=== PATIENT | male | born 1945 | race Caucasian/White ===

== ENCOUNTER 2019-11-29 18:03 | Emergency (ER) | payer MEDICARE ==
[~2019-11-29] VITALS: Ht 165.1 cm; Wt 95.4 kg
[2019-11-29] MEDS ORDERED: ALLO10TA PO (18:31)
[2019-11-29] MEDS ORDERED: VENTAER INH (18:31)
[2019-11-29] MEDS ORDERED: FURO40TA2 PO (18:31)
[2019-11-29] MEDS ORDERED: SILD25TA PO (18:31)
[2019-11-29] MEDS ORDERED: META0.52 PO (18:31)
[2019-11-29] MEDS ORDERED: XANA0.5T PO (18:31)
[2019-11-29] MEDS ORDERED: PREG50CA PO (18:31)
[2019-11-29] MEDS ORDERED: WARF-20 PO (18:31)
[2019-11-29] MEDS ORDERED: ATOR1TAB19 PO (18:31)
[2019-11-29] MEDS ORDERED: vit d3 PO (18:31)
[2019-11-29] MEDS ORDERED: METO1TAB87 PO (18:31)
[2019-11-29] MEDS ORDERED: VITA100062 PO (18:31)
[2019-11-29] MEDS ORDERED: ANOR1AER PO (18:31)
[2019-11-29] MEDS ORDERED: DIGO0.123 PO (18:31)
[2019-11-29] MEDS ORDERED: PRED10PA2 PO (18:31)
[2019-11-29] MEDS ORDERED: METO100T5 PO (18:31)
[2019-11-29] MEDS ORDERED: ASPI81TA85 PO (18:31)
[2019-11-29] MEDS ORDERED: TRAZ-252 PO (18:31)
--- NOTE | 2019-11-29 18:56 | REPVR ---
PROCEDURE INFORMATION: Exam: CT Cervical Spine Without Contrast Exam date and time: 11/29/2019 6:34 PM Age: 74 years old Clinical indication: Injury or trauma; Fall; Initial encounter; Blunt trauma; Additional info: Head injury TECHNIQUE: Imaging protocol: Computed tomography images of the cervical spine without contrast. Radiation optimization: All CT scans at this facility use at least one of these dose optimization techniques: automated exposure control; mA and/or kV adjustment per patient size (includes targeted exams where dose is matched to clinical indication); or iterative reconstruction. COMPARISON: No relevant prior studies available. FINDINGS: Vertebrae: There is no fracture. Vertebral alignment is normal. There is no focal osseous lesion. Discs/Spinal canal/Neural foramina: There is multilevel spondylosis and disc space narrowing. There is no central spinal stenosis. There is foraminal stenosis from C3-C4 to C5-C6. Soft tissues: Unremarkable. Lungs: Lung apices are normal. IMPRESSION: No fracture of the cervical spine. Electronically signed by: Mohinder Schuster On 11/29/2019 18:56:31 PM
--- NOTE | 2019-11-29 18:59 | REPVR ---
PROCEDURE INFORMATION: Exam: CT Head Without Contrast Exam date and time: 11/29/2019 6:34 PM Age: 74 years old Clinical indication: Injury or trauma; Fall; Initial encounter; Blunt trauma (contusions or hematomas); Additional info: Head injury TECHNIQUE: Imaging protocol: Computed tomography of the head without contrast. Radiation optimization: All CT scans at this facility use at least one of these dose optimization techniques: automated exposure control; mA and/or kV adjustment per patient size (includes targeted exams where dose is matched to clinical indication); or iterative reconstruction. COMPARISON: No relevant prior studies available. FINDINGS: Brain: There is volume loss.There is no evidence of infarct, hughes-white matter differentiation is preserved. There is no hemorrhage or extra-axial collection. There is no mass. Ventricles: There is no hydrocephalus. Bones/joints: Unremarkable. No acute fracture. Sinuses: Visualized sinuses are unremarkable. No fluid levels. Mastoid air cells: Visualized mastoid air cells are well aerated. Soft tissues: Unremarkable. IMPRESSION: No intracranial injury or lesion. Electronically signed by: Mohinder Schuster On 11/29/2019 18:59:29 PM
[2019-11-29] MEDS ORDERED: ACETAMINOPHEN 325 MG TAB PO ONE (19:30)
[2019-11-29 19:32] VITALS: BP 144/71
== END 2019-11-29 19:34 | disposition home or self-care (01) ==
LOC: M ED 18:03
DX: S00.03XA Contusion of scalp, initial encounter (principal); S09.8XXA Other specified injuries of head, initial encounter; W22.09XA Striking against other stationary object, initial encounter; Y92.009 Unspecified place in unspecified non-institutional (private) residence as the place of occurrence of the external cause; I48.91 Unspecified atrial fibrillation; I25.10 Atherosclerotic heart disease of native coronary artery without angina pectoris; E11.9 Type 2 diabetes mellitus without complications; M10.9 Gout, unspecified; E78.5 Hyperlipidemia, unspecified; J44.9 Chronic obstructive pulmonary disease, unspecified; N18.4 Chronic kidney disease, stage 4 (severe); Z87.891 Personal history of nicotine dependence; Z88.8 Allergy status to other drugs, medicaments and biological substances; Z79.01 Long term (current) use of anticoagulants; Z79.82 Long term (current) use of aspirin; Z79.51 Long term (current) use of inhaled steroids

== ENCOUNTER 2020-10-05 19:56 | Emergency (ER) | payer MEDICARE ==
[~2020-10-05] VITALS: Ht 165.1 cm; Wt 93.6 kg
[~2020-10-05 19:56] MED LIST: ALLO10TA PO; ANOR1AER PO; ASPI81TA86 PO; ATOR1TAB19 PO; DIGO0.123 PO; FURO40TA2 PO; META0.52 PO; METO100T5 PO; METO1TAB87 PO; PRED10PA2 PO; PREG50CA PO; SILD25TA PO; TRAZ-252 PO; VENTAER INH; VITA100062 PO; WARF-20 PO; XANA0.5T PO; vit d3 PO
[2020-10-05 19:58] VITALS: BP 138/65
[2020-10-05] MEDS ORDERED: WARF4TAB51 PO ×2 (20:14)
[2020-10-05] MEDS ORDERED: SILVER NITRATE APPLICATOR TOP ONE (21:10)
== END 2020-10-05 21:52 | disposition home or self-care (01) ==
LOC: M ED 19:56
DX: L76.22 Postprocedural hemorrhage of skin and subcutaneous tissue following other procedure (principal); E11.9 Type 2 diabetes mellitus without complications; I12.9 Hypertensive chronic kidney disease with stage 1 through stage 4 chronic kidney disease, or unspecified chronic kidney disease; J44.9 Chronic obstructive pulmonary disease, unspecified; N18.4 Chronic kidney disease, stage 4 (severe); M10.9 Gout, unspecified; E78.00 Pure hypercholesterolemia, unspecified; Z88.8 Allergy status to other drugs, medicaments and biological substances; Z79.899 Other long term (current) drug therapy; Z79.82 Long term (current) use of aspirin; Z79.01 Long term (current) use of anticoagulants